=== PATIENT | male | born 1965 | race American Indian/Alaskan Native ===

== ENCOUNTER 2021-07-13 08:34 | Emergency (ER) | payer SELFPAY ==
[2021-07-13 08:57] VITALS: BP 157/98
[2021-07-13] MEDS ORDERED: IBUPROFEN 600 MG TAB PO ONE (09:24)
--- NOTE | 2021-07-13 09:25 | Emergency Department Report ---
ED Lower Extremity HPI - General Chief Complaint: Extremity Injury, Lower Stated Complaint: LT KNEE SWOLLEN Time Seen by Provider: 07/13/21 09:20 Source: patient Mode of arrival: Ambulatory Limitations: No Limitations - History of Present Illness Initial Comments: 56-year-old male presents to the ER today with complaints of left knee pain and swelling. Patient states that while he was at work yesterday around 11:00, he was standing on a ladder when a piece of material fell and struck him on the top of his left knee. He states that he did not fall off the ladder. He states that he continued working but when he got home last night he started with pain mainly to the anterior lateral aspect of the knee and some swelling. He states that he did take Advil without much relief. He reports difficulty walking due to the pain. Denies any prior issues with his knee in the past. MD Complaint: knee injury -: days(s) (1) - Related Data Previous Rx's Medication Instructions Recorded Last Taken Type Ketorolac [Toradol] 10 mg PO Q6H PRN #20 tab 07/13/21 Unknown Rx Allergies Allergy/AdvReac Type Severity Reaction Status Date / Time No Known Allergies Allergy Verified 07/13/21 08:54 ED Review of Systems ROS: Stated complaint: LT KNEE SWOLLEN Other details as noted in HPI Comment: All other systems reviewed and negative Constitutional: denies: chills, fever Eyes: denies: eye pain, eye discharge, vision change ENT: denies: dental pain, hearing loss, epistaxis, congestion Respiratory: denies: cough, shortness of breath, SOB with exertion, SOB at rest, wheezing Gastrointestinal: denies: abdominal pain, nausea, diarrhea, constipation, hematemesis, melena, hematochezia Genitourinary: denies: urgency, dysuria, frequency, hematuria, discharge, testicular pain, testicular mass Musculoskeletal: joint swelling, arthralgia Skin: denies: rash, lesions, change in color, change in hair/nails, pruritus Neurological: denies: headache, weakness, numbness, paresthesias, confusion Psychiatric: denies: anxiety, depression, auditory hallucinations, visual hallucinations, homicidal thoughts Hematological/Lymphatic: denies: easy bleeding, easy bruising, swollen glands ED Past Medical Hx - Medications Home Medications: Home Medications Medication Instructions Recorded Confirmed Last Taken Type Ketorolac [Toradol] 10 mg PO Q6H PRN #20 tab 07/13/21 Unknown Rx ED Physical Exam - General Limitations: No Limitations General appearance: alert, in no apparent distress - Head Head exam: Present: atraumatic, normocephalic, normal inspection - Eye Eye exam: Present: normal appearance, PERRL, EOMI Pupils: Present: normal accommodation - Neck Neck exam: Present: normal inspection, full ROM. Absent: meningismus - Respiratory Respiratory exam: Present: normal lung sounds bilaterally. Absent: respiratory distress, wheezes, rales - Cardiovascular Cardiovascular Exam: Present: regular rate, normal rhythm - Expanded Lower Extremity Exam Left Knee exam: Present: full ROM (but with some pain), tenderness (point ttp just lateral to left patella. No apparent swelling, joint effusion, erythema or bruising. no deformity), full knee extension. Absent: abrasion, laceration, ecchymosis, deformity, crepidus, dislocation, erythema, effusion Neuro vascular tendon exam: Present: no vascular compromise. Absent: abnormal cap refill, motor deficit, sensory deficit, tendon deficit Gait: Positive: observed and limited by pain - Neurological Exam Neurological exam: Present: alert, oriented X3, CN II-XII intact - Psychiatric Psychiatric exam: Present: normal affect, normal mood - Skin Skin exam: Present: intact ED Course Vital Signs 07/13/21 08:54 Temperature 97.8 F Pulse Rate 84 Respiratory 16 Rate Blood Pressure 157/98 [Left] O2 Sat by Pulse 99 Oximetry ED Lower Extremity MDM - Radiology Data Radiology results: report reviewed Patient: ARIS COLON MR#: [id number] : 1965 Acct:[id number] Age/Sex: 56 / M ADM Date: 07/13/21 Loc: ED Attending Dr: Ordering Physician: SAGE LOPEZ Date of Service: 07/13/21 Procedure(s): XR knee 3V LT Accession Number(s): [id number] cc: SAGE LOPEZ Fluoro Time In Minutes: XR knee 3V LT INDICATION / CLINICAL INFORMATION: Knee injury/swelling. COMPARISON: None available. FINDINGS: BONES/JOINT(S): No acute fracture or subluxation. No significant degenerative changes. SOFT TISSUES: No significant abnormality. ADDITIONAL FINDINGS: None. Signer Name: Broderick Pantoja MD Signed: 07/13/2021 9:44 AM Workstation Name: [email or web address] Transcribed By: DYLON Dictated By: Broderick Pantoja MD Electronically Authenticated By: Broderick Pantoja MD Signed Date/Time: 07/13/21943 DD/ 3 TD/TT: Critical care attestation.: If time is entered above; I have spent that time in minutes in the direct care of this critically ill patient, excluding procedure time. ED Disposition Clinical Impression: Knee contusion Disposition: HOME / SELF CARE / HOMELESS Is pt being admited?: No Does the pt Need Aspirin: No Condition: Stable Instructions: How to Use Cold Therapy, [id number], Contusion, [id number] Additional Instructions: Rest, and elevate leg for the next couple days. Use ice and take medications to help with pain. Follow up with PCP in 1 week. Return to ED if worse. Prescriptions: Ketorolac [Toradol] 10 mg PO Q6H PRN #20 tab PRN Reason: Pain Referrals: DENA RICHARD MD [Staff Physician] - 3-5 Days Forms: Work/School Release Form(ED) Time of Disposition: 10:02
--- NOTE | 2021-07-13 09:49 | XRay Report ---
XR knee 3V LT INDICATION / CLINICAL INFORMATION: Knee injury/swelling. COMPARISON: None available. FINDINGS: BONES/JOINT(S): No acute fracture or subluxation. No significant degenerative changes. SOFT TISSUES: No significant abnormality. ADDITIONAL FINDINGS: None. Signer Name: Broderick Pantoja MD Signed: 07/13/2021 9:44 AM Workstation Name: [id number]
== END 2021-07-13 10:33 | disposition home or self-care (01) ==
LOC: ED 08:34
DX: S80.00XA Contusion of unspecified knee, initial encounter (principal); X58.XXXA Exposure to other specified factors, initial encounter; Y93.89 Activity, other specified; Y92.89 Other specified places as the place of occurrence of the external cause; Y99.8 Other external cause status
CPT/HCPCS: 99283